=== PATIENT | female | born 1945 | race Caucasian/White ===

== ENCOUNTER 2019-05-28 20:00 | Emergency (ER) | payer OTHER ==
[2019-05-28] MEDS ORDERED: ONDANSETRON 4 MG/2 ML VIAL ONE (20:35)
[2019-05-28] MEDS ORDERED: MORPHINE 4 MG/ML SYR ONE (20:35)
[2019-05-28 20:54] LABS: Absolute Lymphocytes (CBC) 0.9 K/uL (0.7-4.9); Basophils % 0.7 % (0-1.3); Lymphocytes % 9.9 % (15.3-44.8); MPV 8.9 fL (7.6-11.3); RBC Red Blood Cell Count 3.82 M/uL (3.86-4.86)
[2019-05-28 20:56] LABS: Protime INR 1.05
[2019-05-28 21:11] LABS: Potassium 4.7 mmol/L (3.5-5.1)
[2019-05-28] MEDS ORDERED: NA CHLORIDE 0.9% 500 ML ONE (21:37)
[2019-05-28] MEDS ORDERED: MORPHINE 2 MG/ML SYR ONE (21:43)
--- NOTE | 2019-05-28 23:24 | EDPHYS ---
Physician Documentation [facility] Name: Tamera Nash Age: 73 yrs Sex: Female : 1945 Arrival Date: 05/28/2019 Time: 20:03 Bed 4 Private MD: out of town, doctor ED Physician Jerson Lynn HPI: 05/28 20:30 This 73 yrs old Female presents to ER via Wheelchair with complaints of Fall rn Injury. 20:30 Details of fall: The patient fell from an upright position, while standing. Onset: The rn symptoms/episode began/occurred today. Associated injuries: The patient sustained injury to the chest. Severity of symptoms: At their worst the symptoms were moderate, in the emergency department the symptoms are unchanged. The patient has not experienced similar symptoms in the past. The patient has not recently seen a physician. Reports fall from standing in shower, happened earlier today, hit right chest/ribs on edge of bathtub. Reports hit right knee but otherwise no other injury, no head injury or LOC, no neck pain, reports chronic lower back pain but nothing new. Reports painful to breathe. . Historical: - Allergies: 20:25 "a pain pill that starts with a P"; aj1 20:25 Codeine; aj1 20:25 Tagamet; aj1 20:25 Vicodin; aj1 - PMHx: 20:25 Borderline Diabetes; Hyperlipidemia; Hypertension; aj1 - Immunization history: Last tetanus immunization: < 5 years ago. - Ebola Screening: : Patient denies travel to an Ebola-affected area in the 21 days before illness onset. - Family history:: not pertinent. - Social history:: Smoking status: Patient/guardian denies using tobacco. - Hospitalizations: : No recent hospitalization is reported. ROS: 20:35 Constitutional: Negative for fever, chills, and weight loss, Eyes: Negative for injury, rn pain, redness, and discharge, Neck: Negative for injury, pain, and swelling, Cardiovascular: + right rib pain Respiratory: Negative for shortness of breath, cough, wheezing, + pleuritic chest pain, Abdomen/GI: Negative for abdominal pain, nausea, vomiting, diarrhea, and constipation, Back: Negative for injury and pain, MS/Extremity: + right knee pain Skin: Negative for injury, rash, and discoloration, Neuro: Negative for headache, weakness, numbness, tingling, and seizure. Exam: 20:35 Constitutional: This is a well developed, well nourished patient who is awake, alert, rn and in no acute distress. Head/Face: Normocephalic, atraumatic. Eyes: Pupils equal round and reactive to light, extra-ocular motions intact. Lids and lashes normal. Conjunctiva and sclera are non-icteric and not injected. Cornea within normal limits. Periorbital areas with no swelling, redness, or edema. ENT: no oral trauma Neck: Trachea midline, no thyromegaly or masses palpated, and no cervical lymphadenopathy. Supple, full range of motion without nuchal rigidity, or vertebral point tenderness. No Meningismus. Chest/axilla: + right anterior chest wall and posterior chest wall tenderness, no crepitus, no ecchymosis. No thoracic spinal tenderness. Cardiovascular: Regular rate and rhythm. No pulse deficits. Respiratory: Diminished breath sounds right lung base. No increased work of breathing, no retractions or nasal flaring. Abdomen/GI: soft, non-tender Back: No spinal tenderness. No costovertebral tenderness. Full range of motion. MS/ Extremity: Pulses equal, no cyanosis. Neurovascular intact. + mild painful ROM right knee Neuro: Awake and alert, GCS 15, oriented to person, place, time, and situation. Cranial nerves II-XII grossly intact. Motor strength 5/5 in all extremities. Sensory grossly intact. Cerebellar exam normal. Normal gait. Vital Signs: 20:08 BP 120 / 68; Pulse 84; Resp 18; Temp 99.6(TE); Pulse Ox 98% on R/A; Weight 59.42 kg [facility] (R); Height 5 ft. 5 in. (165.10 cm) (R); Pain 9/10; 21:15 BP 115 / 55; Pulse 70; Resp 17 S; Pulse Ox 100% on R/A; jd3 22:01 Pulse 70; Resp 18 S; Pulse Ox 100% on R/A; jd3 23:04 BP 118 / 60; Pulse 74; Resp 19 S; Pulse Ox 99% on R/A; jd3 20:08 Body Mass Index 21.80 (59.42 kg, 165.10 cm) [facility] [place] Coma Score: 20:08 Eye Response: spontaneous(4). Verbal Response: oriented(5). Motor Response: obeys aj1 commands(6). Total: 15. Trauma Score (Adult): 20:08 Eye Response: spontaneous(1); Verbal Response: oriented(1); Motor Response: obeys aj1 commands(2); Systolic BP: > 89 mm Hg(4); Respiratory Rate: 10 to 29 per min(4); Dre Score: 15; Trauma Score: 12 MDM: 20:10 Patient medically screened. rn 23:20 Differential diagnosis: contusion, fracture. Data reviewed: vital signs, nurses notes, rn x ray test result(s), radiologic studies, CT scan, plain films, and as a result, I will admit patient. Counseling: I had a detailed discussion with the patient and/or guardian regarding: the historical points, exam findings, and any diagnostic results supporting the discharge/admit diagnosis, lab results, radiology results, the need for further work-up and treatment in the hospital. Response to treatment: the patient's symptoms have markedly improved after treatment. ED course: Pt with 2 rib fractures, no displacement or lung injury, no PTX, incidental possible partial obstruction seen on ct abdomen. NO transition point. Had duodenum removed 40 years ago due to ulceration, but no vomiting/abd pain/swelling/constipation. Recommended admission given incidental finding in conjunction with rib fractures for pain control, patient's states this hospital out of network and thinks she will be fine at home, he wants second opinion on Thursday from their doctor. Told them this could be surgical and informed them of risks. They still want to leave. Return precautions given and understood. . 05/28 20:30 Order name: CBC with Diff; Complete Time: : rn 05/28 20:30 Order name: Basic Metabolic Panel; Complete Time: : rn 05/28 20:30 Order name: XRAY Chest (1 view) rn 05/28 20:30 Order name: XRAY Knee RIGHT 2 view rn 05/28 20:30 Order name: Protime (+inr); Complete Time: :31 rn 05/28 20:30 Order name: Ptt, Activated; Complete Time: 21:31 rn 05/28 20:30 Order name: INCENTIVE SPIROMETRY rn 05/28 21:15 Order name: Chest Abd Pelvis Wo Con EDMS 05/28 22:11 Order name: RC INCENTIVE SPIROMETRY EDTX 05/28 20:30 Order name: IV Start; Complete Time: 20:47 rn 05/28 20:30 Order name: NPO; Complete Time: 20:31 rn Administered Medications: 20:47 Drug: morphine 4 mg Route: IVP; Site: left antecubital; jd3 21:44 Follow up: Response: No adverse reaction; RASS: Alert and Calm (0) jd3 20:47 Drug: Zofran 4 mg Route: IVP; Site: left antecubital; jd3 21:44 Follow up: Response: No adverse reaction jd3 21:40 Drug: NS 0.9% 500 ml Route: IV; Rate: bolus; Site: left antecubital; jd3 22:55 Follow up: Response: No adverse reaction; IV Status: Completed infusion; IV Intake: jd3 500ml 21:44 Drug: morphine 2 mg Route: IVP; Site: left antecubital; jd3 22:44 Follow up: Response: No adverse reaction; RASS: Alert and Calm (0) jd3 Disposition: 05/28/19 23:23 Discharged to Home. Impression: Multiple fractures of ribs, right side, Suspected partial small bowel obstruction. - Condition is Stable. - Discharge Instructions: Rib Fracture, Small Bowel Obstruction. - Prescriptions for Tramadol 50 mg Oral Tablet - take 1 tablet by ORAL route every 8 hours as needed; 20 tablet. - Medication Reconciliation Form, Thank You Letter, Antibiotic Education, Prescription Opioid Use form. - Follow up: Private Physician; When: 1 - 2 days; Reason: Recheck today's complaints, Re-evaluation by your physician. - Problem is new. - Symptoms have improved. Signatures: Dispatcher [employer] [facility] Orquidea Vega RN RN aj1 Jerson Lynn MD MD rn Davies, Jonathon, RN RN jd3 Corrections: (The following items were deleted from the chart) 20:40 20:31 Thorax W/ Con+CT.RAD.BRZ ordered. [facility] 20:41 20:35 Constitutional: This is a well developed, well nourished patient who is awake, rn alert, and in no acute distress. Head/Face: Normocephalic, atraumatic. Eyes: Pupils equal round and reactive to light, extra-ocular motions intact. Lids and lashes normal. Conjunctiva and sclera are non-icteric and not injected. Cornea within normal limits. Periorbital areas with no swelling, redness, or edema. Cardiovascular: Regular rate and rhythm. No pulse deficits. Respiratory: Diminished breath sounds right lung base. No increased work of breathing, no retractions or nasal flaring. Abdomen/GI: soft, non-tender MS/ Extremity: Pulses equal, no cyanosis. Neurovascular intact. + mild painful ROM right knee Neuro: Awake and alert, GCS 15, oriented to person, place, time, and situation. Cranial nerves II-XII grossly intact. Motor strength 5/5 in all extremities. Sensory grossly intact. Cerebellar exam normal. Normal gait. rn 20:41 20:35 Constitutional: This is a well developed, well nourished patient who is awake, rn alert, and in no acute distress. Head/Face: Normocephalic, atraumatic. Eyes: Pupils equal round and reactive to light, extra-ocular motions intact. Lids and lashes normal. Conjunctiva and sclera are non-icteric and not injected. Cornea within normal limits. Periorbital areas with no swelling, redness, or edema. Chest/axilla: + right anterior chest wall and posterior chest wall tenderness, no crepitus, no ecchymosis. No thoracic spinal tenderness. Cardiovascular: Regular rate and rhythm. No pulse deficits. Respiratory: Diminished breath sounds right lung base. No increased work of breathing, no retractions or nasal flaring. Abdomen/GI: soft, non-tender MS/ Extremity: Pulses equal, no cyanosis. Neurovascular intact. + mild painful ROM right knee Neuro: Awake and alert, GCS 15, oriented to person, place, time, and situation. Cranial nerves II-XII grossly intact. Motor strength 5/5 in all extremities. Sensory grossly intact. Cerebellar exam normal. Normal gait. rn 21:15 20:35 Thorax W/ Con+CT.RAD.BRZ ordered. EDMS EDMS 21:16 20:45 Abdomen W Contrast ordered. EDTX EDMS 23:53 23:23 05/28/2019 23:23 Discharged to Home. Impression: Multiple fractures of ribs, jd3 right side; Suspected partial small bowel obstruction. Condition is Stable. Forms are Medication Reconciliation Form, Thank You Letter, Antibiotic Education, Prescription Opioid Use. Follow up: Private Physician; When: 1 - 2 days; Reason: Recheck today's complaints, Re-evaluation by your physician. Problem is new. Symptoms have improved. rn
--- NOTE | 2019-05-28 23:24 | ER ---
Nurse's Notes [facility] Name: Tamera Nash Age: 73 yrs Sex: Female : 1945 Arrival Date: 05/28/2019 Time: 20:03 Bed 4 Private MD: out of town, doctor Diagnosis: Multiple fractures of ribs, right side;Suspected partial small bowel obstruction Presentation: 05/28 20:08 Presenting complaint: Patient states: "I slipped in my bathtub at 7:00 this morning. I aj1 thought it would be okay, but I'm having pain in my right side and my back and below my breast, and it hurts worse when I breathe." Denies hitting her head when she fell this morning. Care prior to arrival: None. Mechanism of Injury: Fall from standing position. Trauma event details: Injury occurred in the [facility]. 20:08 Acuity: WANDA 4 aj1 20:08 Method Of Arrival: Wheelchair aj1 20:13 Transition of care: patient was not received from another setting of care. Onset of aj1 symptoms was May 28, 2019 at 07:00. Risk Assessment: Do you want to hurt yourself or someone else? Patient reports no desire to harm self or others. Initial Sepsis Screen: Does the patient meet any 2 criteria? No. Patient's initial sepsis screen is negative. Does the patient have a suspected source of infection? No. Patient's initial sepsis screen is negative. Triage Assessment: 20:25 General: Appears in no apparent distress. uncomfortable, Behavior is calm, cooperative, aj1 appropriate for age. Pain: Complains of pain in back. Neuro: Level of Consciousness is awake, alert, obeys commands. Cardiovascular: Patient's skin is warm and dry. Respiratory: Airway is compromised Respiratory effort is even, unlabored, Respiratory pattern is regular, symmetrical. Trauma Activation: Not Applicable Physician: ED Physician; Name: ; Notified At: ; Arrived At: Physician: General Surgeon; Name: ; Notified At: ; Arrived At: Physician: Radiology; Name: ; Notified At: ; Arrived At: Physician: Respiratory; Name: ; Notified At: ; Arrived At: Physician: Lab; Name: ; Notified At: ; Arrived At: Historical: - Allergies: 20:25 "a pain pill that starts with a P"; aj1 20:25 Codeine; aj1 20:25 Tagamet; aj1 20:25 Vicodin; aj1 - PMHx: 20:25 Borderline Diabetes; Hyperlipidemia; Hypertension; aj1 - Immunization history: Last tetanus immunization: < 5 years ago. - Ebola Screening: : Patient denies travel to an Ebola-affected area in the 21 days before illness onset. - Family history:: not pertinent. - Social history:: Smoking status: Patient/guardian denies using tobacco. - Hospitalizations: : No recent hospitalization is reported. Screenin:08 Abuse screen: Denies threats or abuse. Denies injuries from another. Tuberculosis aj1 screening: No symptoms or risk factors identified. 21:16 Nutritional screening: No deficits noted. Fall Risk Fall Risk IV access (20 points). jd3 Ambulatory Aid- None/Bed Rest/Nurse Assist (0 pts). Gait- Weak (10 pts.). Mental Status- Oriented to own ability (0 pts). Total Borja Fall Scale indicates Low Risk Score (25-44 pts). Fall prevention measures have been instituted. Side Rails Up X 2 Placed close to Nursing Station Frequent Obs/Assesments occuring. Primary Survey: 20:08 NO uncontrolled hemorrhage observed. A: The patient is alert. Airway: patent. aj1 Breathing/Chest: Respiratory pattern: regular, Respiratory effort: spontaneous, unlabored. Circulation: Skin color: pink. Disability Alert. Exposure/Environment: There is no evidence of uncontrolled external bleeding. Assessment: 20:48 General: Appears in no apparent distress. uncomfortable, Behavior is calm, cooperative, jd3 appropriate for age. Pain: Complains of pain in right lateral posterior chest and right lateral anterior chest Quality of pain is described as sharp, tender. Neuro: Level of Consciousness is awake, alert, obeys commands, Oriented to person, place, time, situation, Denies dizziness, headache syncope . Cardiovascular: Denies chest pain, Capillary refill < 3 seconds Patient's skin is warm and dry. Respiratory: Airway is patent Respiratory effort is even, unlabored, Respiratory pattern is regular, symmetrical, Denies cough, shortness of breath. GI: No signs and/or symptoms were reported involving the gastrointestinal system. Patient currently denies nausea, vomiting. : No signs and/or symptoms were reported regarding the genitourinary system. EENT: No signs and/or symptoms were reported regarding the EENT system. Derm: Skin is intact, Skin is dry, Skin is normal, Skin temperature is warm. Musculoskeletal: Circulation, motion, and sensation intact. Range of motion: intact in all extremities. 21:16 Reassessment: Patient appears in no apparent distress at this time. Patient and/or jd3 family updated on plan of care and expected duration. Pain level reassessed. Patient is alert, oriented x 3, equal unlabored respirations, skin warm/dry/pink. reporting some relief from pain medication. 22:01 Reassessment: Patient appears in no apparent distress at this time. No changes from [facility] previously documented assessment. Patient and/or family updated on plan of care and expected duration. Pain level reassessed. Patient is alert, oriented x 3, equal unlabored respirations, skin warm/dry/pink. awaiting diagnostic results. 23:03 Reassessment: Patient appears in no apparent distress at this time. Patient and/or jd3 family updated on plan of care and expected duration. Pain level reassessed. Patient is alert, oriented x 3, equal unlabored respirations, skin warm/dry/pink. provider at bedside. Vital Signs: 20:08 BP 120 / 68; Pulse 84; Resp 18; Temp 99.6(TE); Pulse Ox 98% on R/A; Weight 59.42 kg aj1 (R); Height 5 ft. 5 in. (165.10 cm) (R); Pain 9/10; 21:15 BP 115 / 55; Pulse 70; Resp 17 S; Pulse Ox 100% on R/A; jd3 22:01 Pulse 70; Resp 18 S; Pulse Ox 100% on R/A; jd3 23:04 BP 118 / 60; Pulse 74; Resp 19 S; Pulse Ox 99% on R/A; jd3 20:08 Body Mass Index 21.80 (59.42 kg, 165.10 cm) aj1 Rice Coma Score: 20:08 Eye Response: spontaneous(4). Verbal Response: oriented(5). Motor Response: obeys aj1 commands(6). Total: 15. Trauma Score (Adult): 20:08 Eye Response: spontaneous(1); Verbal Response: oriented(1); Motor Response: obeys aj1 commands(2); Systolic BP: > 89 mm Hg(4); Respiratory Rate: 10 to 29 per min(4); Rice Score: 15; Trauma Score: 12 ED Course: 20:03 Patient arrived in ED. es 20:04 out of town, doctor is Private Physician. es 20:08 Patient has correct armband on for positive identification. aj1 20:08 Patient maintains SpO2 saturation greater than 95% on room air. aj1 20:10 Jerson Lynn MD is Attending Physician. rn 20:12 Triage completed. aj1 20:25 Arm band placed on Patient placed in an exam room. aj1 20:31 Jad Estevez, JOSEP is Primary Nurse. jd3 20:47 Radiology exam delayed due to lab results not completed at this time. (BUN/Creatinine). mw3 21:13 XRAY Chest (1 view) In Process Unspecified. EDMS 21:13 XRAY Knee RIGHT 2 view In Process Unspecified. EDMS 21:56 Chest Abd Pelvis Wo Con In Process Unspecified. EDMS 23:52 No provider procedures requiring assistance completed. IV discontinued, intact, jd3 bleeding controlled, No redness/swelling at site. Pressure dressing applied. Administered Medications: 20:47 Drug: morphine 4 mg Route: IVP; Site: left antecubital; jd3 21:44 Follow up: Response: No adverse reaction; RASS: Alert and Calm (0) jd3 20:47 Drug: Zofran 4 mg Route: IVP; Site: left antecubital; jd3 21:44 Follow up: Response: No adverse reaction jd3 21:40 Drug: NS 0.9% 500 ml Route: IV; Rate: bolus; Site: left antecubital; jd3 22:55 Follow up: Response: No adverse reaction; IV Status: Completed infusion; IV Intake: jd3 500ml 21:44 Drug: morphine 2 mg Route: IVP; Site: left antecubital; jd3 22:44 Follow up: Response: No adverse reaction; RASS: Alert and Calm (0) jd3 Intake: 22:55 IV: 500ml; Total: 500ml. jd3 Outcome: 23:23 Discharge ordered by . rn 23:52 Discharged to home via wheelchair, with family. jd3 23:52 Condition: stable 23:52 Discharge instructions given to patient, family, Instructed on discharge instructions, follow up and referral plans. medication usage, Demonstrated understanding of instructions, follow-up care, medications, Prescriptions given X 1. 23:53 Patient left the ED. jd3 Signatures: Dispatcher [employer] Orquidea Anton RN RN aj1 Aminta Boyd Roman, MD MD rn Davies, Jonathon, RN RN [email or web address] Marie Saucedo 3
[2019-05-29 01:34] VITALS: TEMP 99.6
[2019-05-29 01:38] VITALS: BP 118/60; O2SAT 99
--- NOTE | 2019-05-29 08:52 | RAD REPORT ---
EXAM DESCRIPTION: RAD - Knee Right 2 View - 05/28/2019 9:13 pm CLINICAL HISTORY: Slip and fall, right knee pain COMPARISON: None. FINDINGS: No fracture, dislocation or periosteal reaction.Small joint effusion is present peer media l compartment narrowing is present with large marginal spurs. Patella femoral joint space also narrow ed with moderate size marginal spurring. Arterial tree calcifications are present. No foreign body. IMPRESSION: Prominent degenerative change as detailed. No acute bone finding. Joint effusion. This could be degenerative or trauma related. Clinical concerns for internal derangement or occult bony injury could be further assessed with MR imaging.
--- NOTE | 2019-05-29 08:53 | RAD REPORT ---
EXAM DESCRIPTION: RAD - Chest Single View - 05/28/2019 9:13 pm CLINICAL HISTORY: Slip and fall, blunt force trauma to the chest COMPARISON: None. TECHNIQUE: AP portable chest image was obtained 2107 hours . FINDINGS: No pulmonary contusion or acute lung parenchymal process. Heart and vasculature are normal . No measurable pleural effusion and no pneumothorax. No displaced rib fractures seen. No acute aorti c findings suspected. IMPRESSION: No acute cardiopulmonary process.
--- NOTE | 2019-05-30 13:20 | RAD REPORT ---
EXAM DESCRIPTION: CT - Chest Abd Pelvis Wo Con - 05/28/2019 9:47 pm CLINICAL HISTORY: Blunt trauma, right ant and post rib pain COMPARISON: None Available. TECHNIQUE: CT of the chest, abdomen and pelvis obtained without IV contrast. Suboptimal evaluation o f the soft tissues, vasculature, and solid organs due to lack of IV contrast. FINDINGS: Chest: Thyroid: No abnormalities of the visualized thyroid. Great Vessels: Great vessels have normal anatomic configuration. Thoracic Aorta: Atherosclerotic calcification of the thoracic aorta. Pulmonary arteries: The main pulmonary artery is not dilated. Heart: Coronary artery atherosclerosis. No cardiomegaly. Trace pericardial effusion. Lymph Nodes: No enlarged mediastinal lymph nodes identified. Esophagus: Postoperative change in the epigastric region. Other: No additional findings. Lungs: Minimal bibasilar dependent atelectasis. No confluent airspace consolidation. Pleura: No pleural effusion or pneumothorax. Trachea/Airways: No acute abnormalities of the trachea. Abdomen: Liver: The liver has normal size and density. Gallbladder: No calcified gallstones. Spleen, Pancreas, and Adrenal Glands: The spleen, pancreas, and adrenal glands are unremarkable. Kidneys: The kidneys have normal size without evidence of solid mass or hydronephrosis. Vasculature: Aortoiliac atherosclerosis. IVC is unremarkable. Stomach: The stomach and duodenum have normal course. Other: No free intraperitoneal air. No free fluid or lymphadenopathy. Pelvis: Bladder: Urinary bladder is unremarkable. Bowel: Dilated loops of small bowel with distally decompressed loops of small bowel. No well define d transition point identified. Appendix: Normal appendix. Pelvis: Prior hysterectomy. Bones: Posterior fixation at L3-S1. Multilevel degenerative change of the spine. Vertebral body heigh t preserved. Acute nondisplaced fractures of the anterior right seventh and eighth ribs. IMPRESSION: 1. Acute nondisplaced fractures of the anterior right seventh and eighth ribs. 2. Findings suggestive of small bowel obstruction. No well-defined transition point identified. This may represent a partial obstruction. 3. Coronary artery atherosclerosis. This exam was performed according to our departmental dose-optimization program, which includes autom ated exposure control, adjustment of the mA and/or kV according to patient size and/or use of iterati ve reconstruction technique. Electronically signed by: Garrison Toscano 05/28/2019 10:34 PM [employer] Due to temporary technical issues with the PACS/Fluency reporting system, reports are being signed by the in house radiologist as a courtesy to ensure prompt reporting. The interpreting radiologist is f ully responsible for the content of the report.
== END 2019-05-28 23:53 | disposition home or self-care (01) ==
LOC: ER 20:00
DX: S22.41XA Multiple fractures of ribs, right side, initial encounter for closed fracture (principal); W18.2XXA Fall in (into) shower or empty bathtub, initial encounter; Y93.E1 Activity, personal bathing and showering; Y92.9 Unspecified place or not applicable; I10 Essential (primary) hypertension; Z88.5 Allergy status to narcotic agent; Z88.8 Allergy status to other drugs, medicaments and biological substances
CPT/HCPCS: 96361; 85025; 80048; 36415; 85610; 85730; 71250; 74176; 71045; 73560; 96375; 96374; 99284; J2270; J7040; J2405

== ENCOUNTER 2021-11-01 10:08 | Emergency (ER) | payer OTHER ==
--- OUTSIDE RECORDS SUMMARY | 2021-11-01 10:10 | XMS REPORT | Continuity of Care Document ---
:1945 Author Organization [facility] t Address [address] [place] [address] Dr. Sanchez [address] [place] [address] Care Team Providers Name Role Phone LIZZY Attending Clinician Unavailable MD CORA Attending Clinician Unavailable CABRERA Attending Clinician Unavailable ZHANG Attending Clinician Unavailable CORA Admitting Clinician Unavailable Problems This patient has no known problems. Allergies, Adverse Reactions, Alerts This patient has no known allergies or adverse reactions. Medications This patient has no known medications. Procedures This patient has no known procedures. Encounters Start End Encounter Admission Attending Care Care Encounter Source Date/Time Date/Time Type Type Clinicians Facility Department ID 2021-10-28 2021-10-30 Outpatient KIRITCHARY, [facility] [id number] [place] 00:00:00 00:00:00 LORAINE [address] 2021-01-14 2021-01-14 Outpatient LE, NHUAI [facility] [id number] [place] 00:00:00 00:00:[address] 2020-01-27 2020-01-27 Outpatient LE, HUEYUAI [facility] [id number] [place] 00:00:00 00:00:[address] 2019-08-18 2019-08-18 [facility] [id number] [place] 00:00:00 00:00:00 SARA [address] 2019-08-18 2019-08-18 [facility] [id number] [place] 00:00:00 00:00:00 SARA [address] Results Test Description Test Time Test Comments Results Result Comments Source SARS-CoV-2 (COVID-19) RNA [Presence] in Respiratory sp ecimen by 2021-10-29 13:18:27 TOSHA with probe detection Test Item Value Reference Range Interpretation Comme nts SARS-CoV-2 (COVID-19) RNA [Presence] in Respiratory specimen by Not detected TOSHA with probe detection (test code = 06038-0) Whether patient is employed in a healthcare setting (test code = Un known 35355-3) Whether the patient has symptoms related to condition of interest U nknown (test code = 20222-9) Whether the patient was hospitalized for condition of interest Unkn own (test code = 88388-9) Whether the patient was admitted to intensive care unit (ICU) for U nknown condition of interest (test code = 83357-2) Whether patient resides in a congregate care setting (test code = U nknown 53083-2) status (test code = 46613-3) Unknown Date and time of symptom onset (test code = 95056-3) Unknown
--- NOTE | 2021-11-01 11:08 | EDPHYS ---
Physician Documentation [facility] Name: Tamera Nash Age: 76 yrs Sex: Female : 1945 Arrival Date: 11/01/2021 Time: 10:08 Bed 11 Private MD: ED Physician Blue Joe HPI: 11/01 11:06 This 76 yrs old Female presents to ER via Ambulatory with complaints of Shingles. pm1 11:06 The patient's rash thought to be caused by Shingles. The rash is located on the left pm1 leg. The rash can be described as vesicular. Onset: The symptoms/episode began/occurred 1 week(s) ago. Associated signs and symptoms: Pertinent positives: burning sensation, Pertinent negatives: fever. Severity of symptoms: in the emergency department the symptoms are worse. Treatment given at home: Patient takes gabapentin at home. The patient has experienced a previous episode, many years ago. The patient has not recently seen a physician. Historical: - Allergies: 10:16 "a pain pill that starts with a P"; ap3 10:16 Codeine; ap3 10:16 Tagamet; ap3 10:16 Vicodin; ap3 - PMHx: 10:16 Borderline Diabetes; Hyperlipidemia; Hypertension; ap3 - Immunization history:: Client reports receiving the 2nd dose of the Covid vaccine. - Social history:: Smoking status: Patient denies any tobacco usage or history of. ROS: 11:06 Constitutional: Negative for fever, chills, and weight loss, Cardiovascular: Negative pm1 for chest pain, palpitations, and edema, Respiratory: Negative for shortness of breath, cough, wheezing, and pleuritic chest pain, MS/Extremity: Negative for injury and deformity. 11:06 Neuro: Negative for headache, weakness, numbness, tingling, and seizure. 11:06 Skin: Positive for rash, of the left leg. 11:06 All other systems are negative. Exam: 11:06 Constitutional: This is a well developed, well nourished patient who is awake, alert, pm1 and in no acute distress. Head/Face: Normocephalic, atraumatic. 11:06 Cardiovascular: Exam negative for acute changes, Rate: normal, Rhythm: regular, Pulses: no pulse deficits are appreciated. 11:06 Respiratory: Exam negative for acute changes, respiratory distress, shortness of breath. 11:06 Skin: Appearance: normal except for affected area, consistent with zoster, on the left hip, lateral aspect of left thigh and left quadriceps. 11:06 Neuro: Exam negative for acute changes, Orientation: is normal, Mentation: is normal, Motor: is normal, moves all fours. Vital Signs: 10:15 BP 129 / 62; Pulse 78; Temp 99.2; Pulse Ox 100% ; Weight 60.33 kg; Height 5 ft. 6 in. ap3 (167.64 cm); 11:07 Resp 17; Pain 10/10; ss 10:15 Body Mass Index 21.47 (60.33 kg, 167.64 cm) ap3 MDM: 10:54 Patient medically screened. pm1 11:05 Data reviewed: vital signs. Data interpreted: Pulse oximetry: on room air is 100 %. pm1 Interpretation: normal. 11:05 Counseling: I had a detailed discussion with the patient and/or guardian regarding: the pm1 historical points, exam findings, and any diagnostic results supporting the discharge/admit diagnosis, the need for outpatient follow up, a boatwright, a family practitioner, to return to the emergency department if symptoms worsen or persist or if there are any questions or concerns that arise at home. Administered Medications: 11:10 Drug: HYDROcodone-acetaminophen 5 mg-325 mg 1 tabs {Note: RASS 0.} Route: PO; ss 11:11 Follow up: Response: Medication administered at discharge. ss Disposition Summary: 11/01/21 11:06 Discharge Ordered Location: Home pm1 Problem: new pm1 Symptoms: have improved pm1 Condition: Stable pm1 Diagnosis - Zoster without complications pm1 Followup: pm1 - With: Emergency Department - When: As needed - Reason: Worsening of condition Followup: pm1 - With: Private Physician - When: 2 - 3 days - Reason: Recheck today's complaints, Continuance of care, Re-evaluation by your physician Discharge Instructions: - Discharge Summary Sheet pm1 - Shingles pm1 Forms: - Medication Reconciliation Form pm1 - Thank You Letter pm1 - Antibiotic Education pm1 - Prescription Opioid Use pm1 Prescriptions: - valacyclovir 1 gram Oral tablet - take 1 tablet by ORAL route every 8 hours for 7 days; 21 tablet; Refills: 0, pm1 Product Selection Permitted - Tylenol-Codeine #3 300 mg-30 mg Oral - take 2 tablet by ORAL route every 6 hours As needed; 20 tablet; Refills: 0, pm1 Product Selection Permitted Signatures: Nicole Tineo, RN RN ss Logan Zepeda, DIGITAL MARKETING APPRENTICE DIGITAL MARKETING APPRENTICE pm1 Sue Toledo RN RN ap3
--- NOTE | 2021-11-01 11:08 | ER ---
Nurse's Notes [facility] Name: Tamera Nash Age: 76 yrs Sex: Female : 1945 Arrival Date: 11/01/2021 Time: 10:08 Bed 11 Private MD: Diagnosis: Zoster without complications Presentation: 11/01 10:15 Chief complaint: Patient states: she started having what she believes to be shingles ap3 approx one week ago. rash is present on patients left leg, left gluteal region, and left hip. Rash is reddened, and patient states the rash choi. Coronavirus screen: At this time, the client does not indicate any symptoms associated with coronavirus-19. Ebola Screen: No symptoms or risks identified at this time. Initial Sepsis Screen: Does the patient meet any 2 criteria? No. Patient's initial sepsis screen is negative. Does the patient have a suspected source of infection? No. Patient's initial sepsis screen is negative. Risk Assessment: Do you want to hurt yourself or someone else? Patient reports no desire to harm self or others. Onset of symptoms was October 25, 2021. 10:15 Method Of Arrival: Ambulatory ap3 10:15 Acuity: WANDA 4 ap3 Triage Assessment: 10:17 General: Appears in no apparent distress. Behavior is calm, cooperative. Pain: ap3 Complains of pain in back, buttocks and left leg. Neuro: Level of Consciousness is awake, alert, obeys commands, Oriented to person, place, time, situation, Appropriate for age. Cardiovascular: Patient's skin is warm and dry. Respiratory: Airway is patent Respiratory effort is even, unlabored. Derm: Rash noted that is red, on left low back, buttocks and left leg. Historical: - Allergies: 10:16 "a pain pill that starts with a P"; ap3 10:16 Codeine; ap3 10:16 Tagamet; ap3 10:16 Vicodin; ap3 - PMHx: 10:16 Borderline Diabetes; Hyperlipidemia; Hypertension; ap3 - Immunization history:: Client reports receiving the 2nd dose of the Covid vaccine. - Social history:: Smoking status: Patient denies any tobacco usage or history of. Screenin:17 Abuse screen: Denies threats or abuse. Nutritional screening: No deficits noted. ap3 Tuberculosis screening: No symptoms or risk factors identified. 11:05 Fall Risk None identified. ss Assessment: 11:05 General: Appears in no apparent distress. comfortable, Behavior is calm, cooperative. ss Pain: Complains of pain in lateral aspect of left thigh and left quadriceps Pain currently is 10 out of 10 on a pain scale. Quality of pain is described as burning, aching, tender, Pain began x1 week Is continuous. Neuro: Level of Consciousness is awake, alert, obeys commands, Oriented to person, place, time, situation. Cardiovascular: Capillary refill < 3 seconds is brisk in bilateral fingers. Respiratory: Airway is patent Respiratory effort is even, unlabored, Respiratory pattern is regular, symmetrical. EENT: Nares are clear Oral mucosa is moist. Derm: Skin is intact, is healthy with good turgor, Skin is dry, Skin is pink, warm \\T\\ dry. normal. Derm: Rash noted that is vesicular, on lateral aspect of left thigh and left quadriceps. 11:11 Reassessment: Pt reports she has a ride home. ss Vital Signs: 10:15 BP 129 / 62; Pulse 78; Temp 99.2; Pulse Ox 100% ; Weight 60.33 kg; Height 5 ft. 6 in. ap3 (167.64 cm); 11:07 Resp 17; Pain 10/10; ss 10:15 Body Mass Index 21.47 (60.33 kg, 167.64 cm) ap3 ED Course: 10:08 Patient arrived in ED. mr 10:16 Triage completed. ap3 10:18 Arm band placed on right wrist. ap3 10:50 Logan Zepeda NP is PHCP. pm1 10:50 Blue Joe MD is Attending Physician. pm1 11:05 Nicole Tineo RN is Primary Nurse. ss 11:05 Patient has correct armband on for positive identification. Bed in low position. Call ss light in reach. 11:05 No provider procedures requiring assistance completed. Patient did not have IV access ss during this emergency room visit. Administered Medications: 11:10 Drug: HYDROcodone-acetaminophen 5 mg-325 mg 1 tabs {Note: RASS 0.} Route: PO; ss 11:11 Follow up: Response: Medication administered at discharge. ss Medication: 10:18 VIS not applicable for this client. ap3 Outcome: 11:06 Discharge ordered by . pm1 11:18 Discharged to home ambulatory. 11:18 Condition: good 11:18 Discharge instructions given to patient, Instructed on discharge instructions, follow up and referral plans. medication usage, Demonstrated understanding of instructions, follow-up care, medications, Prescriptions given X 2. 11:19 Patient left the ED. Signatures: Rosario Trivedi Shelby, RN RN Logan Zepeda, CRISTAL PRESCHOOL LEAD TEACHER pm1 Sue Toledo RN RN ap3
[2021-11-01] MEDS ORDERED: HYDROCODONE/APAP 5/325 MG TAB ONE (11:15)
[2021-11-01 11:25] VITALS: BP 129/62; TEMP 99.2; O2SAT 100
== END 2021-11-01 11:19 | disposition home or self-care (01) ==
LOC: ER 10:08
DX: B02.9 Zoster without complications (principal); R73.03 Prediabetes; I10 Essential (primary) hypertension; Z88.5 Allergy status to narcotic agent; Z88.8 Allergy status to other drugs, medicaments and biological substances
CPT/HCPCS: 99283

== ENCOUNTER 2021-11-24 10:46 | Emergency (ER) | payer OTHER ==
--- OUTSIDE RECORDS SUMMARY | 2021-11-24 10:48 | XMS REPORT | Continuity of Care Document ---
:1945 Author Organization [facility] t Address [address] [place] [address] Dr. Sanchez [address] [place] [address] Care Team Providers Name Role Phone LIZZY [...] Facility Department ID 2021-10-28 2021-10-30 Outpatient KIRITCHARY, [facility] [id number] [place] 00:00:00 00:00:00 LORAINE [address] 2021-01-14 2021-01-14 Outpatient LE, NHUAI [facility] [id number] [place] 00:00:00 00:00:[address] 2020-01-27 2020-01-27 Outpatient LE, HUEYUAI [facility] [id number] [place] 00:00:00 00:00:[address] 2019-08-18 2019-08-18 [facility] [id number] [place] 00:00:00 00:00:00 SARA [address] 2019-08-18 2019-08-18 [facility] [id number] [place] 00:00:00 00:00:00 SARA [address] Results Test Description Test Time Test Comments Results Result Comments Source SARS-CoV-2 (COVID-19) RNA [Presence] in Respiratory sp ecimen by 2021-10-29 13:18:27 TOSHA with probe detection Test Item Value Reference Range Interpretation Comme nts SARS-CoV-2 (COVID-19) RNA [Presence] in Respiratory specimen by Not detected TOSHA with probe detection (test code = 22582-5) Whether patient is employed in a healthcare setting (test code = Un known 63673-0) Whether the patient has symptoms related to condition of interest U nknown (test code = 27963-0) Whether the patient was hospitalized for condition of interest Unkn own (test code = 53585-7) Whether the patient was admitted to intensive care unit (ICU) for U nknown condition of interest (test code = 63370-4) Whether patient resides in a congregate care setting (test code = U nknown 63627-6) status (test code = 22636-6) Unknown Date and time of symptom onset (test code = 64502-6) Unknown
--- NOTE | 2021-11-24 11:20 | EDPHYS ---
Physician Documentation [facility] Name: Tamera Nash Age: 76 yrs Sex: Female : 1945 Arrival Date: 11/24/2021 Time: 10:48 Bed Treatment Private MD: ED Physician Cortez Reardon HPI: 11/24 11:15 This 76 yrs old Female presents to ER via Ambulatory with complaints of shingles. en 11:15 76-year-old female presents to ED with persistent from shingles on the left leg. en Patient reports shingles outbreak started 5 weeks ago. She had persistent pain and rash. It is a burning, deep searing pain. No fevers, chills, nausea, vomiting. She completed course of Valtrex and is on gabapentin from PCP which is not helping. She reports pain is worse at night, keeps her up and she is crying from pain.. Historical: - Allergies: 10:56 "a pain pill that starts with a P"; aa5 10:56 Codeine; aa5 10:56 Tagamet; aa5 10:56 Vicodin; aa5 - Home Meds: 10:59 levothyroxine 25 mcg oral cap once daily [Active]; Januvia 100 mg oral tab once daily aa5 [Active]; Simvastatin 25mg Oral once daily [Active]; lisinopril 10 mg Oral tab once daily [Active]; gabapentin 300 mg oral cap PRN [Active]; - PMHx: 10:56 Borderline Diabetes; Hyperlipidemia; Hypertension; aa5 - Immunization history:: Adult Immunizations unknown. - Social history:: Smoking status: Patient denies any tobacco usage or history of. ROS: 11:15 Constitutional: Negative for fever, chills, and weight loss. en 11:15 Cardiovascular: Negative for chest pain. 11:15 Respiratory: Negative for cough, shortness of breath. 11:15 Abdomen/GI: Negative for nausea and vomiting. 11:15 MS/extremity: Negative for Left leg pain. 11:15 Skin: Positive for Shingles to the left leg.. Exam: 11:15 Constitutional: This is a well developed, well nourished patient who is awake, alert, en and in no acute distress. 11:15 Constitutional: The patient appears in no acute distress, alert, awake. 11:15 Eyes: Conjunctiva: normal, no exudate, no injection. 11:15 ENT: Mouth: Lips: moist, Oral mucosa: pink and intact, moist. 11:15 Chest/axilla: Inspection: normal. 11:15 Cardiovascular: Rate: normal, Rhythm: regular, Pulses: no pulse deficits are appreciated, Heart sounds: normal, no murmur, no rub, no gallop. 11:15 Respiratory: mild respiratory distress is noted, Respirations: normal, Breath sounds: are clear throughout, no rales, rhonchi, no stridor, no wheezing. 11:15 Abdomen/GI: Inspection: abdomen appears normal, Bowel sounds: normal, in all quadrants, Palpation: abdomen is soft and non-tender, in all quadrants. 11:15 Back: CVA tenderness, is absent. 11:15 Musculoskeletal/extremity: ROM: no acute changes, full active range of motion, in all extremities. 11:15 Skin: Resolving vesicular rash in the left lateral thigh, buttock and left flank. 11:15 Neuro: Orientation: is normal, no acute changes, to person, place \\T\\ time. Mentation: is normal, appropriate for stated age. 11:15 Psych: Behavior/mood is pleasant, cooperative, Affect is calm. Vital Signs: 10:56 BP 159 / 81; Pulse 88; Resp 18 S; Temp 99.0(TE); Pulse Ox 98% on R/A; Weight 60.33 kg aa5 (R); Height 5 ft. 6 in. (167.64 cm); 10:56 Body Mass Index 21.47 (60.33 kg, 167.64 cm) aa5 MDM: 11:15 Differential diagnosis: Postherpetic neuralgia. Data reviewed: vital signs, nurses en notes, and as a result, I will discharge patient. ED course: Patient with persistent postherpetic neuralgia. She completed Valtrex and is already on week 5 of symptoms. Will DC home with pain control. Patient instructed to continue gabapentin and follow-up with PCP. Daily return precautions are. 11:19 Patient medically screened. en Administered Medications: No medications were administered Disposition: 13:23 Co-signature as Attending Physician, Cortez Reardon MD I agree with the assessment and kdr plan of care. Disposition Summary: 11/24/21 11:19 Discharge Ordered Location: Home en Problem: an ongoing problem en Symptoms: are unchanged en Condition: Stable en Diagnosis - post-herpetic neuralgia en Followup: en - With: Private Physician - When: Tomorrow - Reason: Discharge Instructions: - Discharge Summary Sheet en - Shingles, [id number] en Forms: - Medication Reconciliation Form en - Thank You Letter en - Antibiotic Education en - Prescription Opioid Use en Prescriptions: - Ultram 50 mg Oral Tablet - take 1 tablet by ORAL route every 6 hours As needed; 12 tablet; Refills: 0, en Product Selection Permitted Signatures: Cortez Reardon MD MD kdr Calderon, Audri RN RN aa5 Ivy Starks PA PA en
--- NOTE | 2021-11-24 11:20 | ER ---
Nurse's Notes [facility] Name: Tamera Nash Age: 76 yrs Sex: Female : 1945 Arrival Date: 11/24/2021 Time: 10:48 Bed Treatment Private MD: Diagnosis: post-herpetic neuralgia Presentation: 11/24 10:56 Chief complaint: Patient states: "I've had shingles since october 13 and I've been seen aa5 here twice for it and the medicine did help for a little bit but I need help". Pt reports she has not followed-up with PCP. 10:56 Coronavirus screen: At this time, the client does not indicate any symptoms associated aa5 with coronavirus-19. Ebola Screen: No symptoms or risks identified at this time. Initial Sepsis Screen: Does the patient meet any 2 criteria? No. Patient's initial sepsis screen is negative. Does the patient have a suspected source of infection? No. Patient's initial sepsis screen is negative. Risk Assessment: Do you want to hurt yourself or someone else? Patient reports no desire to harm self or others. Onset of symptoms was 2021. 10:56 Method Of Arrival: Ambulatory aa5 10:56 Acuity: WANDA 5 aa5 Historical: - Allergies: 10:56 "a pain pill that starts with a P"; aa5 10:56 Codeine; aa5 10:56 Tagamet; aa5 10:56 Vicodin; aa5 - Home Meds: 10:59 levothyroxine 25 mcg oral cap once daily [Active]; Januvia 100 mg oral tab once daily aa5 [Active]; Simvastatin 25mg Oral once daily [Active]; lisinopril 10 mg Oral tab once daily [Active]; gabapentin 300 mg oral cap PRN [Active]; - PMHx: 10:56 Borderline Diabetes; Hyperlipidemia; Hypertension; aa5 - Immunization history:: Adult Immunizations unknown. - Social history:: Smoking status: Patient denies any tobacco usage or history of. Vital Signs: 10:56 BP 159 / 81; Pulse 88; Resp 18 S; Temp 99.0(TE); Pulse Ox 98% on R/A; Weight 60.33 kg aa5 (R); Height 5 ft. 6 in. (167.64 cm); 10:56 Body Mass Index 21.47 (60.33 kg, 167.64 cm) aa5 ED Course: 10:48 Patient arrived in ED. as 10:56 Arm band placed on. aa5 10:58 Ivy Starks PA is PHCP. en 10:58 Cortez Reardon MD is Attending Physician. en 10:59 Triage completed. aa5 11:02 Letha Malone, RN is Primary Nurse. iw Administered Medications: No medications were administered Outcome: 11:19 Discharge ordered by . en 11:25 Discharged to home ambulatory. iw 11:25 Condition: good 11:25 Discharge instructions given to patient, Instructed on discharge instructions, follow up and referral plans. medication usage, Demonstrated understanding of instructions, follow-up care, medications, Prescriptions given X 1. 11:25 Patient left the ED. iw Signatures: Micki Page as eLtha Malone, RN RN iw Salma Rodriguez RN RN aa5 Ivy Starks PA PA en
[2021-11-24 11:29] VITALS: BP 159/81; TEMP 99; O2SAT 98
== END 2021-11-24 11:25 | disposition home or self-care (01) ==
LOC: ER 10:46
DX: B02.29 Other postherpetic nervous system involvement (principal); I10 Essential (primary) hypertension; Z88.5 Allergy status to narcotic agent; Z88.8 Allergy status to other drugs, medicaments and biological substances
CPT/HCPCS: 99282

== ENCOUNTER 2021-12-18 16:52 | Emergency (ER) | payer OTHER ==
--- NOTE | 2021-12-18 20:11 | EDPHYS ---
Physician Documentation [facility] Name: Tamera Nash Age: 76 yrs Sex: Female : 1945 Arrival Date: 12/18/2021 Time: 16:54 Bed Waiting Private MD: SAIDA Physician Historical: - Allergies: 12/18 17:03 "a pain pill that starts with a P"; ld1 17:03 Codeine; ld1 17:03 Tagamet; ld1 17:03 Vicodin; ld1 - PMHx: 17:03 Hyperlipidemia; Borderline Diabetes; Hypertension; ld1 - PSHx: 17:03 Back surgery; ld1 - Immunization history:: Adult Immunizations up to date, Client reports receiving the 2nd dose of the Covid vaccine. - Social history:: Smoking status: Patient denies any tobacco usage or history of. Patient/guardian denies using alcohol. Vital Signs: 17:02 BP 111 / 62; Pulse 93; Resp 18; Temp 100.5(O); Pulse Ox 98% on R/A; Weight 58.97 kg; ld1 Height 5 ft. 6 in. (167.64 cm); Pain 8/10; 17:02 Body Mass Index 20.98 (58.97 kg, 167.64 cm) ld1 MDM: 20:10 ED course: Pt called from judy, no answer. yung 12/18 17:05 Order name: COVID-19 SARS RT PCR (Document "Date of Onset" if Symptomatic); Complete ld1 Time: 19:46 Administered Medications: No medications were administered Disposition Summary: 12/18/21 20:10 Eloped Disposition: post triage evaluation and consult ld1 Reason: unknown ld1 Signatures: Dispatcher [employer] EDMS Jerson Lynn MD MD rn Dibbern, Lauren, RN RN ld1 Corrections: (The following items were deleted from the chart) 20:10 20:06 Patient medically screened. yung barragan
--- NOTE | 2021-12-18 20:11 | ER ---
Nurse's Notes [facility] Name: Tamera Nash Age: 76 yrs Sex: Female : 1945 Arrival Date: 12/18/2021 Time: 16:54 Bed Waiting Private MD: Diagnosis: Presentation: 12/18 17:02 Chief complaint: Patient states: Headache X 2 days. I think I slept wrong on a pillow - ld1 today I began having a sharp pain in top right of head. Coronavirus screen: At this time, the client does not indicate any symptoms associated with coronavirus-19. Ebola Screen: No symptoms or risks identified at this time. Initial Sepsis Screen: Does the patient meet any 2 criteria? No. Patient's initial sepsis screen is negative. Does the patient have a suspected source of infection? No. Patient's initial sepsis screen is negative. Risk Assessment: Do you want to hurt yourself or someone else? Patient reports no desire to harm self or others. Onset of symptoms was December 18, 2021. 17:02 Method Of Arrival: Ambulatory ld1 17:02 Acuity: WANDA 3 ld1 Triage Assessment: 17:03 Headache History: Denies prior headaches. General: Appears in no apparent distress. ld1 uncomfortable, Behavior is calm, cooperative, appropriate for age. Pain: Complains of pain in base of the skull Pain does not radiate. Pain currently is 8 out of 10 on a pain scale. Quality of pain is described as throbbing, Pain began 2-3 days ago. Is continuous. EENT: No signs and/or symptoms were reported regarding the EENT system. Neuro: Level of Consciousness is awake, alert, obeys commands, Oriented to person, place, time, situation. Cardiovascular: Capillary refill < 3 seconds Patient's skin is warm and dry. Respiratory: Airway is patent Respiratory effort is even, unlabored. GI: Abdomen is flat, non-distended. : No signs and/or symptoms were reported regarding the genitourinary system. Derm: No signs and/or symptoms reported regarding the dermatologic system. Musculoskeletal: Reports pain in face and scalp. Historical: - Allergies: 17:03 "a pain pill that starts with a P"; ld1 17:03 Codeine; ld1 17:03 Tagamet; ld1 17:03 Vicodin; ld1 - PMHx: 17:03 Hyperlipidemia; Borderline Diabetes; Hypertension; ld1 - PSHx: 17:03 Back surgery; ld1 - Immunization history:: Adult Immunizations up to date, Client reports receiving the 2nd dose of the Covid vaccine. - Social history:: Smoking status: Patient denies any tobacco usage or history of. Patient/guardian denies using alcohol. Vital Signs: 17:02 BP 111 / 62; Pulse 93; Resp 18; Temp 100.5(O); Pulse Ox 98% on R/A; Weight 58.97 kg; ld1 Height 5 ft. 6 in. (167.64 cm); Pain 8/10; 17:02 Body Mass Index 20.98 (58.97 kg, 167.64 cm) ld1 ED Course: 16:54 Patient arrived in ED. as 17:03 Triage completed. ld1 17:03 Arm band placed on right wrist. ld1 17:08 COVID-19 SARS RT PCR (Document "Date of Onset" if Symptomatic) Sent. ld1 20:06 Jerson Lynn MD is Attending Physician. rn Administered Medications: No medications were administered Outcome: 20:10 Patient left the ED. ld1 Signatures: Micki Page as Jerson Lynn MD MD rn Dibbern, Lauren, RN RN ld1 Corrections: (The following items were deleted from the chart) 17:06 17:02 58.97 kg; Height 5 ft. 6 in.; BMI: 20.9; Pain 8/10; ld1 ld1
[2021-12-18 21:32] VITALS: BP 111/62; TEMP 100.5; O2SAT 98
== END 2021-12-18 20:10 | disposition left against medical advice (07) ==
LOC: ER 16:52
DX: R51.9 Headache, unspecified (principal); Z20.822 Contact with and (suspected) exposure to COVID-19
CPT/HCPCS: U0003

== ENCOUNTER 2022-11-14 17:43 | Emergency (ER) | payer OTHER ==
--- OUTSIDE RECORDS SUMMARY | 2022-11-14 17:47 | XMS REPORT | Continuity of Care Document ---
:1945 Author Organization [facility] t Address [address] [place] [address] Care Team Providers Name Role Phone Wilber Rees MD Primary Care Physician [phone] Wilber Rees MD Attending Clinician LORAINE BALL Attending Clinician Unavailable MD TENA SHEPHERD Attending Clinician Unavailable SARA HOLCOMB Attending Clinician Unavailable TENA SHEPHERD Admitting Clinician Unavailable Payers Payer Name Policy Type Policy Number Effective Date Expiration Date S ource Problems Condition Condition Condition Status Onset Resolution Last Treating Co mments Source Name Details Category Date Date Treatment Clinician Date Intractabl Intractabl Disease Active M ethodi e left e left 5-[facility] 00:00: Hospita quadrant quadrant 00 l abdominal abdominal pain pain History of History of Disease Active Overview : [facility] partial partial 01-[address] gastrectom gastrectom 00:00: g of this Hospita y y 00 note l might be different from the original. 1980, for large perforate d gastric ulcer, with intermitt ent dumping; performed in [place] Diastasis Diastasis Disease Active Met hodi recti recti 01-04 00:00: Hospita 00 l Essential Essential Disease Active Met [facility]odi hypertensi hypertensi 01-02 on on 00:00: Hospita 00 l Vitamin D Vitamin D Disease Active Met hodi deficiency deficiency 01-02 00:00: Hospita 00 l Controlled Controlled Disease Active M ethodi type 2 type 2 01-02 diabetes diabetes 00:00: Hospit a mellitus mellitus 00 l without without complicati complicati on, on, without without long-term long-term current current use of use of insulin insulin Mixed Mixed Disease Active Methodi hyperlipid hyperlipid 01-02 emia emia 00:00: Hospita 00 l Chronic Chronic Disease Active [facility] depression depression 01-02 00:00: Hospita 00 l Age-relate Age-relate Disease Active M ethodi d d 01-02 osteoporos osteoporos 00:00: Ho spita is without is without 00 l current current pathologic pathologic al al fracture fracture Primary Primary Disease Active Overview: Meth norm osteoarthr osteoarthr 01-[address] itis itis 00:00: g of this Hospita involving involving 00 note l multiple multiple might be joints joints different from the original. Status-po st L TKA Incisional Incisional Disease Active M ethodi hernia hernia 01-02 00:00: Hospita 00 l Chronic Chronic Disease Active [facility]i constipati constipati 01-02 on on 00:00: Hospita 00 l Preop Preop Disease Active [facility] testing testing 08-12 00:00: Hospita 00 l Hyperparat Hyperparat Disease Active M ethodi hyroidism hyroidism 10-04 00:00: Hospita 00 l Hypothyroi Hypothyroi Disease Active M ethodi dism dism 10-04 00:00: Hospita 00 l Allergies, Adverse Reactions, Alerts Allergy Allergy Status Severity Reaction(s) Onset Inactive Treating Comm ents Source Name Type Date Date Clinician Tramadol Propensi Active Method i ty to 12-30 adverse 00:00: Hospita reaction 00 l s to drug Hydrocod Propensi Active Hives Method i one ty to 08-12 adverse 00:00: Hospita reaction 00 l s to drug Codeine Propensi Active Itching 2016-06 Method i ty to 07-27 st adverse 00:00: Hospita reaction 00 l s to drug Cimetidi Propensi Active Rash Method i ne ty to 10-04 st adverse 00:00: Hospita reaction 00 l s to drug Family History Family Member Diagnosis Comments Start Date Stop Date Source Natural father [facility] Natural mother Lung cancer [facility] Natural sister Heart disease [facility] Natural sister Lung cancer [facility] Social History Social Habit Start Date Stop Date Quantity Comments Source Gender identity [facility] History of Social 2021-10-29 2021-10-[address] function 00:00:00 00:00:00 Hospital Alcohol intake 2019-01-04 2019-01-04 Current [facility] 00:00:00 00:00:00 non-drinker of Hospital alcohol (finding) Tobacco use and 2017-05-13 2017-05-13 Smokeless [facility] exposure 00:00:00 00:00:00 tobacco non-user Hospital Sex Ass[birth year] At [birth year] [facility] 00:00:00 00:00:00 Hospital Smoking Status Start Date Stop Date Source Never smoked tobacco [facility] ospital Medications Ordered Filled Start Stop Current Ordering Indication Dosage Frequency Signature Comments Components Source Medication Medication Date Date Medication? Clinician (SIG) Name Name gabapentin Yes 300mg [id number] Take 300 [facility] (NEURONTIN) 5-18 [id number] mg by s t 300 mg 16:30: 3D mouth 3 Hospita capsule 27 (three) l times a day as needed. levothyroxi Yes 25ug QD Take 25 Met hodi ne 5-[address] (SYNTHROID, 16:30: mouth Hospi ta LEVOXYL) 25 27 every l mcg tablet morning. SITagliptin Yes 100mg QD Take 100 M ethodi (JANUVIA) 5-[address] 100 MG 16:30: mouth Hospita tablet 27 daily. l multivitami Yes 1{tbl} QD Take 1 Me thodi n (MULTIPLE 5-[address] VITAMINS 16:30: mouth Hospita ORAL) 27 daily. l Procedures Procedure Date / Time Performed Performing Clinician Sourc e MAMMO SCREENING W CAD 2022-01-28 16:28:34 Wilber Rees [facility] BILATERAL Plan of Care Planned Activity Planned Date Details Comments Source Future Scheduled 2022-09-13 65+ PNEUMOCOCCAL [facility] Test 03:09:03 VACCINE (1 - PCV) [code = 65+ PNEUMOCOCCAL VACCINE (1 - PCV)] Future Scheduled 2022-09-13 DIABETES: RETINAL EYE Me [facility] Test 03:09:03 EXAM [code = DIABETES: RETINAL EYE EXAM] Future Scheduled 2022-09-13 DIABETIC FOOT EXAM [facility] Hospital Test 03:09:03 [code = DIABETIC FOOT EXAM] Future Scheduled 2022-09-13 URINE MICROALBUMIN [facility] Hospital Test 03:09:03 [code = URINE MICROALBUMIN] Future Scheduled 2022-09-13 Hepatitis C screening [facility] Test 03:09:03 (procedure) [code = 911374014] Future Scheduled 2022-09-13 SHINGLES VACCINES (1 Met [facility] Hospital Test 03:09:03 of 2) [code = SHINGLES VACCINES (1 of 2)] Future Scheduled 2022-09-13 COVID-19 VACCINE (4 - Me [facility] Test 03:09:03 Booster for Pfizer series) [code = COVID-19 VACCINE (4 - Booster for Pfizer series)] Future Scheduled 2022-09-13 INFLUENZA VACCINE [facility] Test 03:09:03 [code = INFLUENZA VACCINE] Encounters Start End Encounter Admission Attending Care Care Encounter Source Date/Time Date/Time Type Type Clinicians Facility Department ID 2022-01-28 2022-01-28 [facility] Wilber Rees 1.2.840.1 [id number] [facility] 10:55:44 23:59:00 [address]counter [facility] [id number] 3.430.2.7 Hospit a .3.765701 l .8 2022-01-28 2022-01-28 Outpatient WILBER REES [facility] [id number] [place] 00:00:00 00:00:[address] 2022-01-28 2022-01-28 Travel 1.2.840.1 [id number] [facility] 00:00:00 00:00:[address] 3.430.2.7 0.2.7.3.698 Ho spita .3.117679 084.8 l .8 2022-01-07 2022-01-07 Transcribe Wilber Rees 1.2.840.1 [id number] Methodi 00:00:00 00:00:00 Orders [facility] [id number] 3.430.2.7 Hospit a .3.113677 l .8 2022-01-07 2022-01-07 Transcribe Wilber Rees 1.2.840.1 [id number] Methodi 00:00:00 00:00:00 Orders [facility]amante [address] 3.430.2.7 Hospit a .3.562917 l .8 2021-10-28 2021-10-30 Outpatient PHALAK, [facility] [id number] [place] 00:00:00 00:00:00 LORAINE [address] 2021-01-14 2021-01-14 Outpatient LE, NHUAI [facility] [id number] [place] 00:00:00 00:00:[address] 2020-01-27 2020-01-27 Outpatient CABRERA, HUEYUAI [facility] [id number] [place] 00:00:00 00:00:[address] 2019-08-18 2019-08-18 Outpatient ROHITOLETSCOOBY, [facility] [id number] [place] 00:00:00 00:00:00 SARA [address] 2019-08-18 2019-08-18 Outpatient ZHANG, [facility] [id number] [place] 00:00:00 00:00:00 SARA [address] Results Test Description Test Time Test Comments Results Result Comments Source INOCENCIO (ANTI-NUCLEAR AB) WITH REFLEX TITER 2022-09-30 05:27:10 Test Item Value Reference Range Interpretation Comme nts ANTI-NUCLEAR ANTIBODIES (test POSITIVE NEGATIVE A code = 3506) INOCENCIO PATTERN (REPORTED SEE BELOW TITER) (test code = 97799) HOMOGENEOUS (test code = NEGATIVE TITER NEGATIVE 39629) SPECKLED (test code = 814114) 1:1280 TITER NEGATIVE H DENSE FINE SPECKLED (test NEGATIVE TITER NEGATIVE code = 17019) CENTROMERE (test code = NEGATIVE TITER NEGATIVE 220411) COARSE SPECKLED (test code = NEGATIVE TITER NEGATIVE 446737) DISCRETE NUCLEAR DOTS (test NEGATIVE TITER NEGATIVE code = 143467) NUCLEOLAR (test code = NEGATIVE TITER NEGATIVE 142400) NUCLEAR MEMBRANE (test code = NEGATIVE TITER NEGATIVE 818595) CYTO. RETICULAR (NAYA) (test NEGATIVE NEGATIVE code = 894165) COMMENTS (test code = 639698) NONE METHOD (test code = 55372) (NOTE) TESTING PERFORMED BY [employer] NOV A VIEW IFA PLATFORM.THE UT THOD INCLUDES A SCREEN THRESHOL D OF 1:80, DIGITIZED AND C OMPUTER ALGORITHM-EV DEWAYNE INTERPRETATION OF TITERS AND DIGITAL PATTERN S, AND HEp-2 CELL LINE SUBST RATE. ADDITIONAL UNUS UAL PATTERNS WILL BE GIVEN A S COMMENTS.FOR MORE INFORMATIO N, SEE [email or web address] TSH, THIRD [id number] 09:37:39 Test Item Value Reference Range Interpretation Comments TSH, THIRD 3.970 UIU/ML 0.400-4.100 [facility] has im portant GENERATION (test pathology s taff code = 2821) changes effecti ve 08/13/2022. New pathology staff will provide uninter rupted, excellent patie nt care and clinical consultation. S ee URL: [email or web address]. UNLES S OTHERWISE INDIC ATED, ALL TESTING PER FORMED AT [facility] [employer], [facility]. [address] [place] [id number] [place] [address] LARS DIRECTOR: Bob FELTON MANAN NUMBER [id number] CAP ACCREDITATION N O. [id number] HEMOGLOBIN [id number] 06:34:27 Test Item Value Reference Range Interpretation Comments HEMOGLOBIN A1c (test 7.1 % 4.2-5.6 H AMERIC AN DIABETES code = 41826) ASSOCIATION IDELINES FOR HGB A1C: PREDIABETES/INC REASED RISK . . . . . . . 5.7 -6.4% DIAGNOSIS OF DI ABETES . . . . . . . . . >=6 .5% WITH CONFIRMATION OR APPROPRIATE SYMPTOMS NOTE: ASSAY MAY BE AFFECTED BY HEMOGLOBINOPATH IES (SICKLE CELL ANEMIA, S- C DISEASE, OTHERS) OR VONNIE FICIALLY LOWERED BY DECR EASED RED CELL SURVIVAL ( HEMOLYTIC ANEMIAS, BLOOD LOSS, ETC.). CONSIDER ALTERN ATE TESTING OR LABORATORY C ONSULTATION. CCP [id number] 05:11:03 Test Item Value Reference Range Interpretation Comments CCP IgG (test <0.5 U/ML <3.0 INTERPRET ALAN code = 25867) INFORMATION * INTERPRETATION RESULT NEGATIVE <3.0 U /ML POSITIVE >=3.0 U/ML RHEUMATOID FACTOR, [id number] 04:43:01 Test Item Value Reference Range Interpretation Comments RHEUMATOID FACTOR, QUANT (test code 16 IU/ML <14 H = 3502) LIPID [id number] 04:41:25 Test Item Value Reference Range Interpretation Comments CHOLESTEROL (test 151 MG/DL <200 code = 2210) TRIGLYCERIDES (test 73 MG/DL <150 code = 2232) HDL CHOLESTEROL (test 49 MG/DL >39 code = 2220) CALC LDL CHOL (test 86 MG/DL <100 NOTE: C ALCULATED LDL code = 2237) IS BASED ON BRUNO-SU METHOD WHICHINCLUDES ADJUSTABLE TRIGLYCERIDE:VL DL CHOLESTEROL RAT IO.THIS FACTOR VARIES B Y MEASURED TRIGLY CERIDE AND NON-HDLCHOL ESTEROL CONCENTRATIONS WITH INCREASED CALCU LATED LDL SEENIN HIGH ER TRIGLYCERIDE OR LOWER NON-HDL SPECIME NS. FOR MOREINFORMATION , SEE CLIENT ANNOUNCE MENT AT [email or web address] RATIO LDL/HDL 1.76 RATIO <3.22 (test code = 2238) COMPREHENSIVE METABOLIC [id number] 04:41:25 Test Item Value Reference Range Interpretation Comments GLUCOSE (test code = 127 MG/DL 70-99 H 2216) BUN (test code = 23 MG/DL 8-2207) CREATININE (test 1.23 MG/DL 0.60-1.30 code = 2214) eGFR (2020 CKD-EPI) 45 ML/MIN/1.73 >60 L The N KF-ASN (test code = 39844) Taskforc e recommends use of Cystatin C to confirm eGFR inadults at ris k for CKD. [facility] offers eGFR with Cystatin C-Creatinineusi ng the 2020 CKD-EP I eGFR_creat-cyst at equation (order code 6317) toincreas e the accuracy of estimated GFR. For more informatio n, contactyour acc ount executive or se e announcement [email or web address] [email or web address] CALC BUN/CREAT (test 19 RATIO 6-28 code = 2235) SODIUM (test code = 140 MEQ/L 939-034 1963) POTASSIUM (test code 4.6 MEQ/L 3.5-5.4 = 2227) CHLORIDE (test code 102 MEQ/L 95-107 = 2215) CARBON DIOXIDE (test 24 MEQ/L 19-31 code = 220) CALCIUM (test code = 9.1 MG/DL 8.5-10.5 2208) PROTEIN, TOTAL (test 7.0 G/DL 6.1-8.3 code = 222) ALBUMIN (test code = 4.5 G/DL 3.5-5.2 2200) CALC GLOBULIN (test 2.5 G/DL 1.9-3.7 code = 2240) CALC A/G RATIO (test 1.8 RATIO 1.0-2.6 code = 223) BILIRUBIN, TOTAL 0.5 MG/DL See_Comment [Automated message] (test code = 2206) [employer] which generated this result transmit dewayne reference range : <=1.2. The refe rence range was not u sed to interpret th is result as normal/abnormal . ALKALINE PHOSPHATASE 88 U/L 40-142 (test code = 2203) AST (test code = 23 U/L 9-40 2217) ALT (test code = 7 U/L 5-40 2218) URIC [id number] 04:41:25 Test Item Value Reference Range Interpretation Comments URIC ACID (test code = 223) 6.0 MG/DL 2.7-6.1 VITAMIN D, 25 [id number] 06:36:00 Test Item Value Reference Range Interpretation Comments VITAMIN D, 25 69 NG/ML SEE BELOW EFFECTIVE 06/23/2022, [place] (test code PLEASE NOTE NE W METHODOLOGY = 4958) IS ELECTROCH EMILUMINESCENCE BINDING ASSAY. NOTE: 25-HYDROXYVITAM IN D ASSAY INCLUDES 25-HYD ROXYVITAMIN D2 AND D3. I NTERPRETIVE RANGES PED IATRIC (<17 YEARS) . . . . . . . . . . . NG/ML 20-100ADU LT: INSUFFICIENT . . . . . . . . . . . . . . NG/ML <20 SUBOP TIMAL . . . . . . . . . . . . . . . NG/ML 20-29 OPTIMAL . . . . . . . . . . . . . . . . . NG/ML 30-100 ALBUMIN/CREATININE RATIO, URINE, [id number] 05:56:38 Test Item Value Reference Range Interpretation Comments CREATININE, URINE, 29.8 MG/DL NOT ESTAB CONC. (test code = 2072) ALBUMIN, URINE, 0.4 MG/DL NOT ESTAB RANDOM (test code = 78881) CALC 13 MG/G <30 Note: Albumin/ Creatinine ALBUMIN/CREAT, RND ratio ref erence interval (test code = reflects ADA [place] NKF [address]25) guidelines. UNL ESS OTHERWISE INDIC ATED, ALL TESTING PERFORM ED ATCLINICAL PATH [facility], [facility]. [address] [place] [address] LABORATORY DIRE CTOR: Wisam GOLDSMITH. CLIA NUMBER [id number] CAP ACCREDITATION N O. [id number] SARS-CoV-2 (COVID-19) RNA [Presence] in Respiratory specimen by TOSHA with probe [id number] 13:18:27 Test Item Value Reference Range Interpretation Comments SARS-CoV-2 (COVID-19) RNA Not detected [Presence] in Respiratory specimen by TOSHA with probe detection (test code = 35282-0) Whether patient is employed in a Unknown healthcare setting (test code = 31658-0) Whether the patient has symptoms Unknown related to condition of interest (test code = 63364-2) Whether the patient was Unknown hospitalized for condition of interest (test code = 92199-9) Whether the patient was admitted Unknown to intensive care unit (ICU) for condition of interest (test code = 27129-7) Whether patient resides in a Unknown congregate care setting (test code = 16951-8) status (test code = Unknown 47895-5) Date and time of symptom onset Unknown (test code = 78063-9) [facility]
--- NOTE | 2022-11-14 19:10 | EDPHYS ---
Physician Documentation [facility] Name: Tamera Nash Age: 77 yrs Sex: Female : 1945 Arrival Date: 11/14/2022 Time: 17:43 Bed IW1 Private MD: ED Physician Alexandr Duenas HPI: 11/14 20:40 This 77 yrs old Female presents to ER via Ambulatory with complaints of Toe Injury. kb 20:40 The patient presents with an injury, pain, swelling, tenderness. The complaints affect kb the left third toe. Context: The problem was sustained at home, resulted from believes it is due to forcing her foot into a shoe 2 days ago, the patient can fully bear weight, the patient is able to ambulate. Onset: The symptoms/episode began/occurred 2 day(s) ago. Modifying factors: The symptoms are alleviated by nothing, the symptoms are aggravated by touching, pressure. Associated signs and symptoms: Pertinent positives: swelling, Pertinent negatives: calf tenderness, fever, nausea, numbness, rash, tingling, vomiting, warmth, weakness. Severity of symptoms: At their worst the symptoms were moderate, in the emergency department the symptoms are unchanged. The patient has not experienced similar symptoms in the past. The patient has not recently seen a physician. Historical: - Allergies: 18:16 "a pain pill that starts with a P"; ss 18:16 Codeine; ss 18:16 Tagamet; ss 18:16 Vicodin; ss - PMHx: 18:16 Borderline Diabetes; Hyperlipidemia; Hypertension; ss - PSHx: 18:16 back surgery; ss - Immunization history:: Client reports receiving the 2nd dose of the Covid vaccine. - Social history:: Smoking status: Patient denies any tobacco usage or history of. ROS: 20:38 Constitutional: Negative for fever, chills, and weight loss. kb 20:38 MS/extremity: Positive for erythema, pain, swelling, tenderness, of the left third toe. 20:38 All other systems are negative. Exam: 20:38 Constitutional: This is a well developed, well nourished patient who is awake, alert, kb and in no acute distress. Head/Face: Normocephalic, atraumatic. ENT: Moist Mucous membranes Cardiovascular: Regular rate and rhythm with a normal S1 and S2. No gallops, murmurs, or rubs. No pulse deficits. Respiratory: Respirations even and unlabored. No increased work of breathing. Talking in full sentences Skin: Warm, dry with normal turgor. Normal color. Neuro: Awake and alert, GCS 15, oriented to person, place, time, and situation. Moves all extremities. Normal gait. 20:38 Musculoskeletal/extremity: Extremities: grossly normal except: noted in the left third toe: decreased ROM, erythema, pain, swelling, tenderness, ROM: intact in all extremities, Circulation is intact in all extremities. Sensation intact. Weight bearing: able to fully bear weight. Vital Signs: 18:14 BP 152 / 73; Pulse 76; Resp 16; Temp 98.3(TE); Pulse Ox 100% on R/A; Weight 62.14 kg; ss Height 5 ft. 4 in. ; Pain 8/10; 18:14 Body Mass Index 23.52 (62.14 kg, 162.56 cm) ss 18:14 Pain Scale: Adult ss MDM: 17:51 Patient medically screened. kb 20:39 Differential diagnosis: contusion, fracture, sprain, cellulitis. Data reviewed: vital kb signs, nurses notes. Counseling: I had a detailed discussion with the patient and/or guardian regarding: the historical points, exam findings, and any diagnostic results supporting the discharge/admit diagnosis, radiology results, the need for outpatient follow up, a family practitioner, to return to the emergency department if symptoms worsen or persist or if there are any questions or concerns that arise at home. 11/14 17:53 Order name: Foot Left 3 View XRAY kb Administered Medications: No medications were administered Disposition Summary: 11/14/22 19:09 Discharge Ordered Location: Home kb Condition: Stable kb Diagnosis - Local infection of the skin and subcutaneous tissue, unspecified kb - Pain in left foot kb Followup: kb - With: Emergency Department - When: As needed - Reason: Worsening of condition Followup: kb - With: Private Physician - When: 2 - 3 days - Reason: Recheck today's complaints, Continuance of care, Re-evaluation by your physician Discharge Instructions: - Discharge Summary Sheet kb - Toe Fracture, [id number] kb - Cellulitis, Adult, [id number]-[id number] kb Forms: - Medication Reconciliation Form kb - Thank You Letter kb - Antibiotic Education kb - Prescription Opioid Use kb Prescriptions: - Cephalexin 500 mg Oral Capsule - take 1 capsule by ORAL route every 8 hours for 10 days; 30 capsule; Refills: 0, kb Product Selection Permitted Signatures: Dispatcher [employer] Winter Florian, NURSE OB-C NURSE OB-Nicole Pizano, RN RN ss
--- NOTE | 2022-11-14 19:10 | ER ---
Nurse's Notes [facility] Name: Tamera Nash Age: 77 yrs Sex: Female : 1945 Arrival Date: 11/14/2022 Time: 17:43 Bed IW1 Private MD: Diagnosis: Local infection of the skin and subcutaneous tissue, unspecified;Pain in left foot Presentation: 11/14 18:14 Chief complaint: Patient states: pain and bruising to L third toe x 2 days. Coronavirus ss screen: Client denies travel out of the [place] in the last 14 days. Ebola Screen: Patient denies exposure to infectious person. Patient denies travel to an Ebola-affected area in the 21 days before illness onset. Initial Sepsis Screen: Does the patient meet any 2 criteria? No. Patient's initial sepsis screen is negative. Does the patient have a suspected source of infection? No. Patient's initial sepsis screen is negative. Risk Assessment: Do you want to hurt yourself or someone else? Patient reports no desire to harm self or others. Onset of symptoms was November 12, 2022. 18:14 Method Of Arrival: Ambulatory ss 18:14 Acuity: WANDA 4 ss Historical: - Allergies: 18:16 "a pain pill that starts with a P"; ss 18:16 Codeine; ss 18:16 Tagamet; ss 18:16 Vicodin; ss - PMHx: 18:16 Borderline Diabetes; Hyperlipidemia; Hypertension; ss - PSHx: 18:16 back surgery; ss - Immunization history:: Client reports receiving the 2nd dose of the Covid vaccine. - Social history:: Smoking status: Patient denies any tobacco usage or history of. Screenin:14 [facility] ED Fall Risk Assessment (Adult) History of falling in the last 3 months, ss including since admission No falls in past 3 months (0 pts). Abuse screen: Denies threats or abuse. Denies injuries from another. Nutritional screening: No deficits noted. Tuberculosis screening: Never had TB. Assessment: 18:14 General: Appears in no apparent distress. comfortable, Behavior is calm, cooperative. ss Pain: Complains of pain in left third toe. Neuro: Level of Consciousness is awake, alert, obeys commands, Oriented to person, place, time, situation. Cardiovascular: Capillary refill < 3 seconds is brisk in bilateral fingers. Respiratory: Airway is patent Respiratory effort is even, unlabored, Respiratory pattern is regular, symmetrical. Derm: Skin is pink, warm \\T\\ dry. normal. 19:05 Reassessment: Pt is asking to leave and be called with her results. CRISTAL Max ss notified and is speaking with patient. Vital Signs: 18:14 BP 152 / 73; Pulse 76; Resp 16; Temp 98.3(TE); Pulse Ox 100% on R/A; Weight 62.14 kg; ss Height 5 ft. 4 in. ; Pain 8/10; 18:14 Body Mass Index 23.52 (62.14 kg, 162.56 cm) ss 18:14 Pain Scale: Adult ss ED Course: 17:47 Patient arrived in ED. rg4 17:51 Winter Alfred FNP-C is [facility]. kb 17:51 Alexandr Duenas MD is Attending Physician. kb 18:14 Patient has correct armband on for positive identification. ss 18:16 Triage completed. ss 18:16 Arm band placed on right wrist. ss 18:45 Foot Left 3 View XRAY In Process Unspecified. EDMS 19:16 No provider procedures requiring assistance completed. Patient did not have IV access ss during this emergency room visit. Administered Medications: No medications were administered Medication: 18:14 VIS not applicable for this client. ss Outcome: 19:09 Discharge ordered by . kb 19:16 Discharged to home ambulatory. ss 19:16 Condition: good 19:16 Discharge instructions given to patient, Instructed on discharge instructions, follow up and referral plans. Demonstrated understanding of instructions, follow-up care, medications. 19:18 Patient left the ED. ss Signatures: Dispatcher [employer] EDMS Winter Alfred FNP-C FNP-Ckb Smirch, Shelby, RN RN Shiloh Royal rg4
--- NOTE | 2022-11-14 19:30 | RAD REPORT ---
EXAM DESCRIPTION: RAD - Foot Left 3 View - 11/14/2022 6:43 pm CLINICAL HISTORY: PAIN COMPARISON: No comparisons TECHNIQUE: Left foot, 3 views. FINDINGS: No fracture, dislocation or periosteal reaction. Small calcaneal spur. Hallux valgus deformity with the first metatarsophalangeal angle measuring appr oximately 40 degrees. No air or foreign body in the soft tissues. Vascular calcifications. IMPRESSION: No acute osseous abnormality. Small calcaneal spur. Hallux valgus.
== END 2022-11-14 19:18 | disposition home or self-care (01) ==
LOC: ER 17:43
DX: L08.9 Local infection of the skin and subcutaneous tissue, unspecified (principal); Z88.5 Allergy status to narcotic agent; Z88.8 Allergy status to other drugs, medicaments and biological substances
CPT/HCPCS: 99283